=== PATIENT | male | born 1990 | race Caucasian/White ===

== ENCOUNTER 2020-07-19 04:07 | Emergency (ER) | payer MEDICAID ==
[2020-07-19 04:15] VITALS: PULSE 85; RESP 18; TEMP 98.7
[2020-07-19 04:26] VITALS: BP 168/94
--- NOTE | 2020-07-19 04:42 | ED ---
GI Bleed HPI - General Chief complaint: GI Bleed Stated complaint: abd pain Time Seen by Provider: 07/19/20 04:24 Source: patient, RN notes reviewed, old records reviewed Mode of arrival: ambulatory Limitations: no limitations - History of Present Illness Initial comments: This is a 22-year-old male DF for evaluation patient Dese for evaluation of bright red blood per rectum patient will some uneasiness and queasiness in his stomach 1 tell bowel movement and noticed little bit of stool majority blood and then but on further. Patient has no pain no pain in his rectum no significant abdominal pain. No recent fevers nausea vomiting. No at other history of abdominal surgery or issues with bleeding or bruising MD complaint: blood on toilet paper, blood streaked stool -: hour(s) Severity scale (1-10): 3 Quality: painless, cramping Consistency: intermittent, now resolved (No current bowel movements since initial) Improves with: none Worsens with: none Associated Symptoms: denies other symptoms Treatments Prior to Arrival: none - Related Data Allergies Allergy/AdvReac Type Severity Reaction Status Date / Time No Known Allergies Allergy Verified 07/19/20 04:15 Review of Systems ROS Statement: Those systems with pertinent positive or pertinent negative responses have been documented in the HPI. ROS Other: All systems not noted in ROS Statement are negative. Past Medical History Past Medical History: No Reported History History of Any Multi-Drug Resistant Organisms: None Reported Past Surgical History: No Surgical Hx Reported Past Psychological History: No Psychological Hx Reported Smoking Status: Never smoker Past Alcohol Use History: Occasional Past Drug Use History: None Reported General Exam Limitations: no limitations General appearance: alert, in no apparent distress Head exam: Present: atraumatic, normocephalic, normal inspection Eye exam: Present: normal appearance, PERRL, EOMI. Absent: scleral icterus, conjunctival injection, periorbital swelling ENT exam: Present: normal exam, mucous membranes moist Neck exam: Present: normal inspection. Absent: tenderness, meningismus, lymphadenopathy Respiratory exam: Present: normal lung sounds bilaterally. Absent: respiratory distress, wheezes, rales, rhonchi, stridor Cardiovascular Exam: Present: regular rate, normal rhythm, normal heart sounds. Absent: systolic murmur, diastolic murmur, rubs, gallop, clicks GI/Abdominal exam: Present: soft, normal bowel sounds. Absent: distended, tenderness, guarding, rebound, rigid Extremities exam: Present: normal inspection, full ROM, normal capillary refill. Absent: tenderness, pedal edema, joint swelling, calf tenderness Back exam: Present: normal inspection Neurological exam: Present: alert, oriented X3, CN II-XII intact Psychiatric exam: Present: normal affect, normal mood Skin exam: Present: warm, dry, intact, normal color. Absent: rash Course Vital Signs 07/19/20 07/19/20 04:10 04:25 Temperature 98.7 F Pulse Rate 85 Respiratory 18 Rate Blood Pressure 175/125 168/94 O2 Sat by Pulse 98 Oximetry - Reevaluation(s) Reevaluation #1: 07/19/20 04:41 Medical records reviewed Reevaluation #2: 07/19/20 04:41 Spoke with patient at length, with decision-making process no further testing regarding this time, patient returns symptoms worsen Medical Decision Making - Medical Decision Making 22 female DF for evaluation patient Dese for evaluation of bright red blood per rectum after long discussion with patient decision will be made to take a conservative approach follow-up 0.4, patient is also spoke with about his blood pressure and will continue a follow-up appointment Thursday care Disposition Clinical Impression: Gastrointestinal hemorrhage Disposition: HOME SELF-CARE Condition: Good Instructions (If sedation given, give patient instructions): Gastrointestinal Bleeding (ED) Is patient prescribed a controlled substance at d/c from ED?: No Referrals: None,Stated [Primary Care Provider] - 1-2 days
== END 2020-07-19 04:58 | disposition home or self-care (01) ==
LOC: EC 04:07
DX: K92.2 Gastrointestinal hemorrhage, unspecified (principal)
CPT/HCPCS: 99284

== ENCOUNTER 2020-07-19 13:50 | Emergency (ER) | payer MEDICAID ==
[2020-07-19] MEDS ORDERED: SODIUM CHLORIDE 0.9% 500 ML 500 ML IV STA (14:51)
--- NOTE | 2020-07-19 15:25 | ED ---
General Adult HPI - General Source: patient, RN notes reviewed, old records reviewed Mode of arrival: ambulatory Limitations: no limitations <Handy Cotton - Last Filed: 07/19/20 18:07> <Emani Cardoso - Last Filed: 07/20/20 18:34> - General Chief complaint: GI Bleed Stated complaint: Revisit - Blood in Stool Time Seen by Provider: 07/19/20 14:11 - History of Present Illness Initial comments: 30-year-old male patient presents to ED for evaluation of red blood in stools. Patient reports that this began last night at about 3 AM. He reports that since then he has had about 3-4 stools which have had some red blood which she says is darker in nature. He denies any significant pain in the abdomen. Patient reports that he has little bit of nausea this sensation of fullness. He denies any vomiting. Denies use of blood thinners or excessive aspirin use. Denies any other acute complaints. Systemic: Pt denies fatigue, fever/chills, rash. Pt denies weakness, night sweats, weight loss. Neuro: Pt denies headache, visual disturbances, syncope or pre-syncope. HEENT: Pt denies ocular discharge or irritation, otalgia, rhinorrhea, pharyngitis or notable lymphadenopathy. Cardiopulmonary: Pt denies chest pain, SOB, heart palpitations, dyspnea on exertion. Abdominal/GI: Pt denies abdominal pain, v/d. : Pt denies dysuria, burning w/ urination, frequency/urgency. Denies new onset urinary or bowel incontinence. MSK: Pt denies myalgia, loss of strength or function in extremities. Neuro: Pt denies new onset weakness, paresthesias. (Handy Cotton) - Related Data Previous Rx's Medication Instructions Recorded Omeprazole 20 mg PO Q24HR 7 Days #7 capsule. 07/19/20 Allergies Allergy/AdvReac Type Severity Reaction Status Date / Time No Known Allergies Allergy Verified 07/19/20 13:59 Review of Systems ROS Other: All systems not noted in ROS Statement are negative. <Handy Cotton - Last Filed: 07/19/20 18:07> ROS Other: All systems not noted in ROS Statement are negative. <Emani Cardoso - Last Filed: 07/20/20 18:34> ROS Statement: Those systems with pertinent positive or pertinent negative responses have been documented in the HPI. Past Medical History Past Medical History: No Reported History History of Any Multi-Drug Resistant Organisms: None Reported Past Surgical History: No Surgical Hx Reported Past Psychological History: No Psychological Hx Reported Smoking Status: Never smoker Past Alcohol Use History: Occasional Past Drug Use History: None Reported <Handy Cotton - Last Filed: 07/19/20 18:07> General Exam Limitations: no limitations <Handy Cotton - Last Filed: 07/19/20 18:07> - General Exam Comments Initial Comments: Constitutional: NAD, AOX3, Pt has pleasant affect. HEENT: NC/AT, trachea midline, neck supple, no lymphadenopathy. External ears appear normal, without discharge. Mucous membranes moist. Eyes PERRLA, EOM intact. There is no scleral icterus. No pallor noted. Cardiopulmonary: RRR, no murmurs, rubs or gallops, no JVD noted. Lungs CTAB in anterior and posterior agu[place]. No peripheral edema. Abdominal exam: Abdomen soft and non-distended. Abdomen non-tender to palpation in all 4 quadrants. Bowel sounds active in LLQ. No hepatosplenomegaly. No ecchymosis Neuro: CN II-XII grossly intact. No nuchal rigidity. No raccon eyes. MSK: Full active ROM in upper and lower extremities. Rectal: No hemorrhoid, no fissure. No red blood or melanotic stools noted. (Handy Cotton) Course Vital Signs 07/19/20 07/19/20 07/19/20 14:00 15:03 15:30 Temperature 98.7 F Pulse Rate 81 86 82 Respiratory 18 32 H 21 Rate Blood Pressure 138/80 134/82 O2 Sat by Pulse 98 96 Oximetry 07/19/20 07/19/20 07/19/20 15:50 16:00 16:30 Temperature Pulse Rate 89 75 68 Respiratory 18 11 L 20 Rate Blood Pressure 129/74 129/74 137/73 O2 Sat by Pulse 98 98 98 Oximetry 07/19/20 07/19/20 17:00 17:53 Temperature 98.0 F Pulse Rate 75 87 Respiratory 16 16 Rate Blood Pressure 134/65 112/78 O2 Sat by Pulse 98 99 Oximetry Medical Decision Making - Lab Data Result diagrams: 07/19/20 15:20 07/19/20 15:20 - EKG Data -: EKG Interpreted by Me (and Dr. Cardoso ) <Handy Cotton - Last Filed: 07/19/20 18:07> - Lab Data Result diagrams: 07/19/20 15:20 07/19/20 15:20 <Emani Cardoso - Last Filed: 07/20/20 18:34> - Medical Decision Making 30-year-old male patient presents to the chief complaint of some dark blood in stools and per rectum. Patient vital signs are stable, afebrile. Reports that he is not having any abdominal pain this time. Physical exam displayed nontender abdomen, there is no red blood per rectum. No hemorrhoids or fissures noted. Lymph investigations revealed mild leukocytosis, occult blood is positive. EKG is nonischemic. CT abdomen and pelvis displayed mild fecal stasis, mild diverticulosis without acute diverticulitis. Mild fecal retention. Moderate fatty infiltration of liver. Patient will be discharged with proton pump inhibitor as well as close outpatient follow-up with GI and primary care provider. Case discussed with Dr. Cardoso. (Handy Cotton) I was available for consultation in the emergency department. The history and physical exam were done by the midlevel provider. I was consulted for this patients care. I reviewed the case with the midlevel provider and based on their presentation of the patient, I agree with the assessment, medical decision making and plan of care as documented. Patient presents with symptoms concerning for IBD. Patient must follow up with GI for further evaluation and management. Chart was dictated using [employer] dictation software. Attempts were made to correct any dictation errors however some typographical errors may persist. Patient was seen during a national state of emergency due to the Covid-19 pandemic. (Emani Cardoso) - Lab Data Lab Results 07/19/20 07/19/20 07/19/20 Range/Units 15: 15: 15:20 WBC 11.9 H (3.8-10.6) k/uL RBC 4.65 (4.30-5.90) m/uL Hgb 13.6 (13.0-17.5) gm/dL Hct 41.0 (39.0-53.0) % MCV 88.2 (80.0-100.0) fL MCH 29.3 (25.0-35.0) pg MCHC 33.2 (31.0-37.0) g/dL RDW 12.3 (11.5-15.5) % Plt Count 312 (150-450) k/uL Neutrophils % 79 % Lymphocytes % 15 % Monocytes % 4 % Eosinophils % 1 % Basophils % 0 % Neutrophils # 9.4 H (1.3-7.7) k/uL Lymphocytes # 1.8 (1.0-4.8) k/uL Monocytes # 0.5 (0-1.0) k/uL Eosinophils # 0.1 (0-0.7) k/uL Basophils # 0.0 (0-0.2) k/uL PT 10.3 (9.0-12.0) sec INR 1.0 (<1.2) APTT 22.8 (22.0-30.0) sec Sodium 136 L (137-145) mmol/L Potassium 4.6 (3.5-5.1) mmol/L Chloride 104 (98-107) mmol/L Carbon Dioxide 27 (22-30) mmol/L Anion Gap 5 mmol/L BUN 15 (9-20) mg/dL Creatinine 0.74 (0.66-1.25) mg/dL Est GFR (CKD-EPI)AfAm >90 (>60 ml/min/1.73 sqM) Est GFR (CKD-EPI)NonAf >90 (>60 ml/min/1.73 sqM) Glucose 142 H (74-99) mg/dL Plasma Lactic Acid Manny (0.7-2.0) mmol/L Calcium 8.7 (8.4-10.2) mg/dL Magnesium 2.0 (1.6-2.3) mg/dL Total Bilirubin 0.6 (0.2-1.3) mg/dL AST 41 (17-59) U/L ALT 78 H (4-49) U/L Alkaline Phosphatase 106 (38-126) U/L Troponin I (0.000-0.034) ng/mL Total Protein 7.1 (6.3-8.2) g/dL Albumin 4.2 (3.5-5.0) g/dL Lipase 57 (23-300) U/L Stool Occult Blood (Negative) 07/19/20 07/19/20 07/19/20 Range/Units 15:20 15:20 15:20 WBC (3.8-10.6) k/uL RBC (4.30-5.90) m/uL Hgb (13.0-17.5) gm/dL Hct (39.0-53.0) % MCV (80.0-100.0) fL MCH (25.0-35.0) pg MCHC (31.0-37.0) g/dL RDW (11.5-15.5) % Plt Count (150-450) k/uL Neutrophils % % Lymphocytes % % Monocytes % % Eosinophils % % Basophils % % Neutrophils # (1.3-7.7) k/uL Lymphocytes # (1.0-4.8) k/uL Monocytes # (0-1.0) k/uL Eosinophils # (0-0.7) k/uL Basophils # (0-0.2) k/uL PT (9.0-12.0) sec INR (<1.2) APTT (22.0-30.0) sec Sodium (137-145) mmol/L Potassium (3.5-5.1) mmol/L Chloride (98-107) mmol/L Carbon Dioxide (22-30) mmol/L Anion Gap mmol/L BUN (9-20) mg/dL Creatinine (0.66-1.25) mg/dL Est GFR (CKD-EPI)AfAm (>60 ml/min/1.73 sqM) Est GFR (CKD-EPI)NonAf (>60 ml/min/1.73 sqM) Glucose (74-99) mg/dL Plasma Lactic Acid Manny 1.5 (0.7-2.0) mmol/L Calcium (8.4-10.2) mg/dL Magnesium (1.6-2.3) mg/dL Total Bilirubin (0.2-1.3) mg/dL AST (17-59) U/L ALT (4-49) U/L Alkaline Phosphatase (38-126) U/L Troponin I <0.012 (0.000-0.034) ng/mL Total Protein (6.3-8.2) g/dL Albumin (3.5-5.0) g/dL Lipase (23-300) U/L Stool Occult Blood Positive (Negative) - EKG Data EKG Comments: Ventricular rate 78, when necessary for 144, QRS 92, QT/QTC 368/419. Normal since rhythm, cannot rule out inferior infarct age undetermined. No concern for acute ischemic at this time. (Handy Cotton) Disposition Is patient prescribed a controlled substance at d/c from ED?: No <Handy Cotton - Last Filed: 07/19/20 18:07> <Emani Cardoso - Last Filed: 07/20/20 18:34> Clinical Impression: Blood per rectum Disposition: HOME SELF-CARE Condition: Stable Instructions (If sedation given, give patient instructions): Gastrointestinal Bleeding (ED) Additional Instructions: follow-up with primary care provider and oiler helper tomorrow. Return to ER with any worsening symptoms. Have blood sugar recheck by PCP. Take Protonix as directed. Prescriptions: Omeprazole 20 mg PO Q24HR 7 Days #7 capsule.dr Referrals: None,Stated [Primary Care Provider] - 1-2 days Monique Martines MD [REFERRING] - 1-2 days Nighat Bryant MD [STAFF PHYSICIAN] - 1-2 days
[2020-07-19 15:35] LABS: Basophils % (A) 0 %; Eosinophils # (A) 0.1 k/uL (0-0.7); Eosinophils % (A) 1 %; HGB 13.6 gm/dL (13.0-17.5); Lymphocytes # (A) 1.8 k/uL (1.0-4.8); Lymphocytes % (A) 15 %; MCH 29.3 pg (25.0-35.0); MCHC 33.2 g/dL (31.0-37.0); MCV 88.2 fL (80.0-100.0); Mean Platelet Volume 7.1; Monocytes # (A) 0.5 k/uL (0-1.0); Monocytes % (A) 4 %; Neutrophils # (A) 9.4 k/uL (1.3-7.7); Neutrophils % (A) 79 %; Platelet Count 312 k/uL (150-450); RBC 4.65 m/uL (4.30-5.90); RDW 12.3 % (11.5-15.5); WBC 11.9 k/uL (3.8-10.6)
[2020-07-19 15:40] LABS: Partial Thromboplastin Time 22.8 sec (22.0-30.0); Prothrombin Time 10.3 sec (9.0-12.0)
[2020-07-19 15:42] LABS: ALT 78 U/L (4-49); AST 41 U/L (17-59); African American GFR (CKD) >90 (>60 ml/min/1.73 sqM); Albumin 4.2 g/dL (3.5-5.0); Alkaline Phosphatase 106 U/L (38-126); Anion Gap 5 mmol/L; Blood Urea Nitrogen 15 mg/dL (9-20); Calcium 8.7 mg/dL (8.4-10.2); Carbon Dioxide 27 mmol/L (22-30); Chloride 104 mmol/L (98-107); Glucose 142 mg/dL (74-99); Non-African American GFR(CKD) >90 (>60 ml/min/1.73 sqM); Potassium 4.6 mmol/L (3.5-5.1); Sodium 136 mmol/L (137-145); Total Bilirubin 0.6 mg/dL (0.2-1.3); Total Protein 7.1 g/dL (6.3-8.2)
--- NOTE | 2020-07-19 16:47 | CT ---
EXAMINATION TYPE: CT abdomen pelvis w con DATE OF EXAM: 07/19/2020 COMPARISON: 12/17/2004 INDICATION: Rectal bleeding, bright red. DLP: 2388.5 mGycm, Automated exposure control for dose reduction was used. CONTRAST: 100 mL of Isovue 300. Study performed without Oral Contrast TECHNIQUE: Axial images were obtained from above the diaphragm to the pubic rami in the axial plane a t 5 mm thick sections. Reconstructed images are reviewed on the computer in the coronal plane. FINDINGS: Limited CT sections are obtained the lung bases. The lung bases are clear. CT ABDOMEN: Liver: There is moderate fatty infiltration to the liver. No discrete masses or cysts are evident. Spleen: Normal Pancreas: Normal Adrenal glands: The adrenal glands are normal. Gallbladder: Normal Kidneys: No masses are evident. No hydronephrosis is present. No cysts are present. Delayed images were obtained through the kidneys, which remain unremarkable. Aorta: Normal Inferior vena cava: Normal. CT PELVIS: Loops of bowel within the abdomen and pelvis are normal. Study is without oral contrast limiting bowel evaluation. Few diverticuli are within the proximal sigmoid colon. Fecal debris is within the d istal sigmoid colon. No suspicious wall thickening is evident. Small bowel loops are nondilated. Appendix: Normal as visualized. Urinary bladder: Normal. Genitourinary structures: Prostate is unremarkable Osseous structures: No suspicious lytic or sclerotic lesions. IMPRESSIONS: 1. Mild diverticulosis without acute diverticulitis. 2. Mild fecal retention. 3. Moderate fatty infiltration liver.
[2020-07-19] MEDS ORDERED: PANTOPRAZOLE 40 MG TABLET PO STA (16:57)
[2020-07-19 17:30] VITALS: RESP 16
[2020-07-19 17:54] VITALS: BP 112/78; PULSE 87; TEMP 98
== END 2020-07-19 17:53 | disposition home or self-care (01) ==
LOC: EC 13:50
DX: K62.5 Hemorrhage of anus and rectum (principal); K57.30 Diverticulosis of large intestine without perforation or abscess without bleeding; K59.00 Constipation, unspecified; K76.0 Fatty (change of) liver, not elsewhere classified
CPT/HCPCS: 36415; 80053; 83605; 83690; 83735; 84484; 85025; 85610; 85730; 82272; 74177; 99285; 96360; Q9967

== ENCOUNTER → 2020-11-21 | Outpatient (CLI) | payer MEDICAID ==
--- NOTE | 2020-11-21 14:12 | US ---
EXAMINATION TYPE: US venous doppler duplex LE BI DATE OF EXAM: 11/21/2020 1:34 PM COMPARISON: NONE CLINICAL HISTORY: M79.604 Pain in rt leg;M79.605 Pain in lt leg. SIDE PERFORMED: Bilateral TECHNIQUE: The lower extremity deep venous system is examined utilizing real time linear array sonog filippo with graded compression, doppler sonography and color-flow sonography. VESSELS IMAGED: Common Femoral Vein Deep Femoral Vein Greater Saphenous Vein * Femoral Vein Popliteal Vein Small Saphenous Vein * Proximal Calf Veins (* superficial vessels) Right Leg: Negative for DVT Left Leg: Negative for DVT IMPRESSION: 1. Bilateral lower extremity ultrasound negative for deep venous thrombosis.
== END | disposition home or self-care (01) ==
LOC: RADUSWWP 13:09
PROVIDERS: ATTEND Family Medicine
DX: M79.604 Pain in right leg (principal); M79.605 Pain in left leg
CPT/HCPCS: 93970

== ENCOUNTER → 2021-04-16 | Outpatient (CLI) | payer MEDICAID ==
--- NOTE | 2021-04-16 08:38 | US ---
EXAMINATION TYPE: US abdomen complete DATE OF EXAM: 04/16/2021 COMPARISON: CT 07/19/2020 CLINICAL HISTORY: R10.13 Epigastric pain. epigastric pain EXAM MEASUREMENTS: Liver Length: 17.3 cm Gallbladder Wall: 0.2 cm CBD: 0.4 cm Spleen: 8.0 cm Right Kidney: 11.7 x 5.0 x 5.1 cm Left Kidney: 11.5 x 5.4 x 4.2 cm technical limitations due to patient's body habitus and large amount of overlying bowel content Pancreas: Obscured by bowel gas Liver: attenuating Gallbladder: no evidence of stones Evidence for sonographic Zambrano's sign: no CBD: appears wnl Spleen: wnl Right Kidney: no evidence of hydronephrosis Left Kidney: no evidence of hydronephrosis Upper IVC: wnl Abd Aorta: wnl The liver is heterogeneous and slightly echogenic. The intrahepatic portion of the IVC and proximal abdominal aorta are within normal limits. There is no evidence of cholelithiasis. Common bile duct is unremarkable. The visualized portions of the pancreas are homogenous. The spleen is unremarkable . Kidneys are symmetric and free of hydronephrosis. No renal lesions are seen. IMPRESSION: Liver is heterogeneous and slightly echogenic which is nonspecific but can be seen with hepatic steat osis.
== END | disposition home or self-care (01) ==
LOC: RADUSWWP 06:59
PROVIDERS: ATTEND Family Medicine
DX: R13.10 Dysphagia, unspecified (principal)
CPT/HCPCS: 76700

== ENCOUNTER → 2021-05-03 | Outpatient (CLI) | payer MEDICAID ==
--- NOTE | 2021-05-03 11:56 | CT ---
EXAMINATION TYPE: CT abdomen pelvis w con DATE OF EXAM: 05/03/2021 COMPARISON: 07/19/2020 HISTORY: bilateral pelvic pain CT DLP: 1987 mGycm Automated exposure control for dose reduction was used. CONTRAST: CT scan of the abdomen pelvis is performed with IV Contrast, patient injected with 100 mL of Isovue 3 00. FINDINGS- LUNG BASES- No significant abnormality is appreciated. LIVER/[id number] liver suggestive of hepatic steatosis. No gallstones.. PANCREAS- No gross abnormality is seen. SPLEEN- No gross abnormality is seen. ADRENALS- No gross abnormality is seen. KIDNEYS/BLADDER- no hydronephrosis nephrolithiasis or renal mass. BOWEL- no bowel dilatation. Normal appendix. LYMPH NODES- No greater than 1cm abdominal or pelvic lymph nodes areappreciated. OSSEOUS STRUCTURES-hypertrophic and degenerative changes spine. OTHER- small fat-containing periumbilical hernia. Small fat-containing bilateral inguinal hernia. IMPRESSION- 1. Small fat-containing bilateral inguinal hernia. 2. Mild hepatic steatosis
== END | disposition home or self-care (01) ==
LOC: RADCTMAIN 09:31
PROVIDERS: ATTEND Family Medicine
DX: K40.20 Bilateral inguinal hernia, without obstruction or gangrene, not specified as recurrent (principal); K76.0 Fatty (change of) liver, not elsewhere classified
CPT/HCPCS: 74177; Q9967

== ENCOUNTER → 2022-01-20 | Day surgery (SDC) | payer MEDICAID ==
[2022-01-16 11:31] VITALS: BMI 34.8
[~2022-01-20] MED LIST: LACTATED RINGERS 1,000 ML IV SCH; LIDOCAINE 1% (10MG/ML) FOR IV START INTRADERMA PRN; PROPOFOL 10 MG/ML 20 ML VIAL IV ONE
--- NOTE | 2022-01-20 07:34 | P.GSHP ---
History of Present Illness H&P Date: 01/20/22 CHIEF COMPLAINT: Colon screen HISTORY OF PRESENT ILLNESS: The patient is a 31-year-old male who presents for colon screen. Lower endoscopy was offered for further evaluation and management. PAST MEDICAL HISTORY: Please see list. PAST SURGICAL HISTORY: Please see list. MEDICATIONS: Please see list. ALLERGIES: Please see list. SOCIAL HISTORY: No illicit drug use FAMILY HISTORY: No reports of Crohn disease or ulcerative colitis. REVIEW OF ORGAN SYSTEMS: CONSTITUTIONAL: No reports of fevers or chills. PHYSICAL EXAM: VITAL SIGNS: Stable GENERAL: Well-developed pleasant in no acute distress. HEENT: No scleral icterus. Extraocular movements grossly intact. Moist buccal mucosa. NECK: Supple without lymphadenopathy. CHEST: Unlabored respirations. Equal bilateral excursions. CARDIOVASCULAR: Regular rate and rhythm. Distal 2+ pulses. ABDOMEN: Soft, nontender, nondistended. MUSCULOSKELETAL: No clubbing, cyanosis, or edema. ASSESSMENT: 1. Colon screen. PLAN: 1. Recommend proceeding with a lower endoscopy Past Medical History Past Medical History: No Reported History Additional Past Medical History / Comment(s): IBS History of Any Multi-Drug Resistant Organisms: None Reported Past Surgical History: No Surgical Hx Reported Past Anesthesia/Blood Transfusion Reactions: No Reported Reaction Smoking Status: Never smoker - Past Family History Mother Family Medical History: No Reported History Medications and Allergies Home Medications Medication Instructions Recorded Confirmed Type Dicyclomine [Bentyl] 20 mg PO DAILY PRN 01/16/22 01/16/22 History Allergies Allergy/AdvReac Type Severity Reaction Status Date / Time No Known Allergies Allergy Verified 01/16/22 11:26
[2022-01-20 09:46] VITALS: RESP 16; TEMP 98.3
[2022-01-20 10:13] VITALS: PULSE 77
--- NOTE | 2022-01-20 10:24 | P.PCN ---
Date of Procedure: 01/20/22 Description of Procedure: PREOPERATIVE DIAGNOSIS: Change in bowel habits with colitis POSTOPERATIVE DIAGNOSIS: Change in bowel habits with colitis OPERATION: Colonoscopy to the cecum, ileocecal valve and appendiceal orifice. Colonoscopy with random cold forceps biopsies SURGEON: Rema Morales MD. ANESTHESIA: MAC. INDICATIONS: The patient is a 31-year-old male who presents with change in bowel habits or colitis. Benefits and risks were described and informed consent was obtained. DESCRIPTION OF PROCEDURE: The patient had undergone Sutab prep. The patient had been brought into the operating room and laid in the left lateral decubitus position. After adequate intravenous sedation, the rectum was examined with 2% lidocaine jelly. No external hemorrhoids were encountered. The rectal tone was within normal limits. No lesions were palpated in the rectal vault. An Olympus colonoscope was ad vanced until the cecum, ileocecal valve and appendiceal orifice were clearly viewed. The prep was excellent. No scattered diverticulosis was encountered. No colonic polyps were found. Random cold forceps biopsies were obtained for colitis. Retroflexion of the scope demonstrated grade 1 internal hemorrhoids without active bleeding or inflammation. The colon was desufflated. The patient had tolerated the procedure well. Withdrawal time was over 6 minutes. FINDINGS: Aronchick preparation quality scale 1 (1-5) Internal hemorrhoids, grade 1 No external prolapsed hemorrhoids. No arteriovenous malformations. No adenomatous polyps. Random cold forceps biopsies for colitis RECOMMENDATIONS: Lower endoscopy as needed Plan - Discharge Summary Discharge Rx Participant: No New Discharge Prescriptions: Discontinued Dicyclomine [Bentyl] 20 mg PO DAILY PRN PRN Reason: IBS SYMPTOMS Follow up Appointment(s)/Referral(s): Rema Morales MD [STAFF PHYSICIAN] - 01/28/22 Patient Instructions/Handouts: *[facility] - (Anesthesia) Endoscopy Discharge Instructions Discharge Disposition: HOME SELF-CARE
[2022-01-20 10:31] VITALS: BP 160/67
== END | disposition home or self-care (01) ==
LOC: ORWHC2ENDO 09:14
PROVIDERS: ATTEND Surgery Plastic and Reconstructive Surgery
DX: K52.9 Noninfective gastroenteritis and colitis, unspecified (principal); K64.0 First degree hemorrhoids; K58.9 Irritable bowel syndrome, unspecified; Z79.899 Other long term (current) drug therapy
CPT/HCPCS: 88305; 45380; J2704